=== PATIENT | male | born 2000 | race Hispanic/Latino ===

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

== ENCOUNTER 2020-02-26 06:36 | Emergency (ER) | payer SELFPAY | END 2020-02-26 06:58 | disposition home or self-care (01) | LOC: BURERS 06:36 | DX: H60.501 Unspecified acute noninfective otitis externa, right ear (principal) | CPT/HCPCS: 99282 ==

== ENCOUNTER 2021-05-13 21:17 | Emergency (ER) | payer SELFPAY ==
[2021-05-13] MEDS ORDERED: NEOMYCIN-POLYMYXIN-HC EAR SUSP 200 DROP/10 ML BOT ONE (21:31)
[2021-05-13] MEDS ORDERED: Ibuprofen 800 MG TAB ONE (21:45)
== END 2021-05-13 21:54 | disposition home or self-care (01) ==
LOC: BURERS 21:17
DX: H60.501 Unspecified acute noninfective otitis externa, right ear (principal)
CPT/HCPCS: 99282

== ENCOUNTER 2021-05-15 19:21 | Emergency (ER) | payer SELFPAY | END 2021-05-15 19:51 | disposition home or self-care (01) | LOC: BURERS 19:21 | DX: T16.1XXA Foreign body in right ear, initial encounter (principal) | CPT/HCPCS: 69200 ==

== ENCOUNTER 2024-04-06 18:26 | Emergency (ER) | payer SELFPAY ==
[2024-04-06] MEDS ORDERED: Amoxicillin/Potassium Clav 875 MG TAB ONE (19:34)
== END 2024-04-06 19:43 | disposition home or self-care (01) ==
LOC: BURERS 18:26
DX: H66.91 Otitis media, unspecified, right ear (principal); H60.90 Unspecified otitis externa, unspecified ear
CPT/HCPCS: 99282